=== PATIENT | male | born 1955 | race African-American/Black ===

== ENCOUNTER 2017-04-11 09:45 | Emergency (ER) | payer SELFPAY ==
[~2017-04-11] VITALS: Ht 180.3 cm; Wt 85.0 kg
[~2017-04-11 09:45] MED LIST: LISI-363 PO; METF500 PO; PERC5TAB12 PO
[2017-04-11 09:46] VITALS: BP 187/97; PULSE 76; RESP 20; TEMP 98.4; O2SAT 99
[2017-04-11] MEDS ORDERED: GLIP5TAB8 PO (10:00)
[2017-04-11] MEDS ORDERED: LISI-515 PO ×2 (10:00→15:23)
[2017-04-11] MEDS ORDERED: SODIUM CHLORIDE 0.9% FLUSH 10 ML FLUSH IVF PRN (10:30)
[2017-04-11] MEDS ORDERED: LISINOPRIL 20 MG TAB PO ONE (10:30)
[2017-04-11 10:45] VITALS: RESP 16; O2SAT 98
[2017-04-11 10:46] LABS: AUTOMATED NEUTROPHIL # 2.4 TH/MM3 (1.8-7.7); BASOPHIL % 0.5 % (0.0-2.0); EOSINOPHIL # 0.1 TH/MM3 (0-0.4); EOSINOPHIL % 1.4 % (0.0-4.0); HEMATOCRIT 40.3 % (39.0-51.0); HEMO FLAGS DIFF FINAL; LYMPH % 34.7 % (9.0-44.0); LYMPHOCYTE # 1.5 TH/MM3 (1.0-4.8); MEAN CELL VOLUME 85.7 FL (80.0-100.0); MEAN CORPUSCULAR HEMOGLOBIN 29.4 PG (27.0-34.0); MEAN CORPUSCULAR HGB CONC 34.3 % (32.0-36.0); MONO % 8.3 % (0.0-8.0); NEUT % 55.1 % (16.0-70.0); PLATELET COUNT 313 TH/MM3 (150-450); RED BLOOD COUNT 4.71 MIL/MM3 (4.50-5.90); RED CELL DISTRIBUTION WIDTH 13.1 % (11.6-17.2); WHITE BLOOD COUNT 4.4 TH/MM3 (4.0-11.0)
[2017-04-11 10:57] LABS: APTT (PATIENT) 28.4 SEC (24.3-30.1); PROTHROMBIN TIME - PATIENT 10.7 SEC (9.8-11.6)
[2017-04-11 10:59] LABS: ALT (GPT) 14 U/L (12-78); ANION GAP 9 MEQ/L (5-15); AST (GOT) 11 U/L (15-37); BICARBONATE 23.7 MEQ/L (21.0-32.0); BLOOD UREA NITROGEN 11 MG/DL (7-18); CHLORIDE 104 MEQ/L (98-107); GLOMERULAR FILTRATION RATE 84 ML/MIN (>89); POTASSIUM 3.9 MEQ/L (3.5-5.1); SODIUM (NA) 137 MEQ/L (136-145)
[2017-04-11 11:03] LABS: ALKALINE PHOSPHATASE 81 U/L (45-117); TOTAL BILIRUBIN ADULT 0.3 MG/DL (0.2-1.0)
--- NOTE | 2017-04-11 11:24 | RADRPT ---
EXAM DATE/TIME: 04/11/2017 10:46 [facility] COMPARISON: No previous studies available for comparison. INDICATIONS : Elevated Blood Pressure MEDICAL HISTORY : None. SURGICAL HISTORY : None. ENCOUNTER: Initial ACUITY: 1 day PAIN SCORE: 0/10 LOCATION: Bilateral chest FINDINGS: A single view of the chest demonstrates the lungs to be symmetrically aerated without evidence of mas s, infiltrate or effusion. The cardiomediastinal contours are unremarkable. Osseous structures are intact. CONCLUSION: No acute disease. Timmy Mcgill MD on April 11, 2017 at 11:22 Board Certified Radiologist. This report was verified electronically.
--- NOTE | 2017-04-11 12:56 | RADRPT ---
EXAM DATE/TIME: 04/11/2017 12:31 [facility] COMPARISON: No previous studies available for comparison. INDICATIONS : Blood pressure issues.Double vision. RADIATION DOSE: 56.35 CTDIvol (mGy) MEDICAL HISTORY : Hypertension. Diabetes SURGICAL HISTORY : None. ENCOUNTER: Initial ACUITY: 4 - 6 days PAIN SCALE: 0/10 LOCATION: cranial TECHNIQUE: Multiple contiguous axial images were obtained of the head. Using automated exposure control and adj ustment of the mA and/or kV according to patient size, radiation dose was kept as low as reasonably a chievable to obtain optimal diagnostic quality images. DICOM format image data is available electro nically for review and comparison. FINDINGS: CEREBRUM: The ventricles are normal for age. No evidence of midline shift, mass lesion, hemorrhage or acute in farction. No extra-axial fluid collections are seen. POSTERIOR FOSSA: The cerebellum and brainstem are intact. The 4th ventricle is midline. The cerebellopontine angle i s unremarkable. EXTRACRANIAL: The visualized portion of the orbits is intact. SKULL: The calvaria is intact. No evidence of skull fracture. CONCLUSION: No acute disease. Timmy Mcgill MD on April 11, 2017 at 12:53 Board Certified Radiologist. This report was verified electronically.
[2017-04-11 13:00] VITALS: BP 178/97; PULSE 68; RESP 18; O2SAT 98
--- NOTE | 2017-04-11 15:23 | PD ---
HPI Chief Complaint: Medication Refill Request Time Seen by Provider: 10:07 Travel History International Travel<30 days: No Contact w/Intl Traveler<30days: No Traveled to known affect area: No History of Present Illness HPI Patient is a 61-year-old male who comes in complaining of not feeling well. He says he is out of his lisinopril. He also reports double vision and tingling sensation in his hands. He denies any chest pain or shortness of breath. Denies any headache. He says he went to see an vehicle window tinter, who said that he had the double vision from his diabetes. He says he has an appointment with his primary care doctor in April 27. [facility] Past Medical History Diabetes: Yes Patient Takes Glucophage: Yes Diminished Hearing: No Hypertension: Yes Past Surgical History Surgical History: No Previous Surgery Social History Alcohol Use: No Tobacco Use: No Substance Use: No Allergies-Medications (Allergen,Severity, Reaction): Coded Allergies: No Known Allergies (Verified , 04/11/17) Reported Meds & Prescriptions Reported Meds & Active Scripts Active Reported Glipizide Unknown Strength Tab Unknown Dose PO DAILY Take 30 minutes before a meal Lisinopril 20 Mg Tab 20 Mg PO DAILY Review of Systems Except as stated in HPI: all other systems reviewed are Neg General / Constitutional: No: Fever, Chills Eyes: Positive: Diploplia, No: Blurred Vision HENT: No: Headaches, Lightheadedness Cardiovascular: No: Chest Pain or Discomfort Respiratory: No: Shortness of Breath Gastrointestinal: No: Nausea, Vomiting Musculoskeletal: No: Myalgias Skin: No Rash, No Change in Pigmentation Neurologic: Positive: Paresthesia Physical Exam Narrative GENERAL: Awake and alert, in no acute distress. SKIN: Focused skin assessment warm/dry. HEAD: Atraumatic. Normocephalic. EYES: Pupils equal and round and reactive. No scleral icterus. Extraocular movements intact. ENT: Mucous membranes pink and moist. NECK: Trachea midline. No JVD. CARDIOVASCULAR: Regular rate and rhythm. No murmur appreciated. RESPIRATORY: No accessory muscle use. Clear to auscultation. Breath sounds equal bilaterally. GASTROINTESTINAL: Abdomen soft, non-tender, nondistended. Hepatic and splenic margins not palpable. MUSCULOSKELETAL: No obvious deformities. No clubbing. No cyanosis. No edema. NEUROLOGICAL: Awake and alert. No obvious cranial nerve deficits. Motor grossly within normal limits. Normal speech. Past pointing on finger-nose- finger test. PSYCHIATRIC: Appropriate mood and affect; insight and judgment normal. Data Data Last Documented VS Vital Signs Date Time Temp Pulse Resp B/P Pulse Ox O2 Delivery O2 Flow Rate FiO2 04/11/17 13:00 68 18 178/97 98 Room Air 04/11/17 09:46 98.4 Orders Complete Blood Count With Diff (04/11/17 10:16) Comprehensive Metabolic Panel (04/11/17 10:16) Troponin I (04/11/17 10:16) Act Partial Throm Time (Ptt) (04/11/17 10:16) Prothrombin Time / Inr (Pt) (04/11/17 10:16) Chest, Single Ap (04/11/17 10:16) Ct Brain W/O Iv Contrast(Rout) (04/11/17 10:16) Ecg Monitoring (04/11/17 10:16) Iv Access Insert/Monitor (04/11/17 10:16) Oximetry (04/11/17 10:16) Sodium Chloride 0.9% Flush (Ns Flush) (04/11/17 10:30) Lisinopril (Prinivil) (04/11/17 10:30) Labs Laboratory Tests Test 04/11/17 10:32 White Blood Count 4.4 TH/MM3 Red Blood Count 4.71 MIL/MM3 Hemoglobin 13.8 GM/DL Hematocrit 40.3 % Mean Corpuscular Volume 85.7 FL Mean Corpuscular Hemoglobin 29.4 PG Mean Corpuscular Hemoglobin 34.3 % Concent Red Cell Distribution Width 13.1 % Platelet Count 313 TH/MM3 Mean Platelet Volume 8.2 FL Neutrophils (%) (Auto) 55.1 % Lymphocytes (%) (Auto) 34.7 % Monocytes (%) (Auto) 8.3 % Eosinophils (%) (Auto) 1.4 % Basophils (%) (Auto) 0.5 % Neutrophils # (Auto) 2.4 TH/MM3 Lymphocytes # (Auto) 1.5 TH/MM3 Monocytes # (Auto) 0.4 TH/MM3 Eosinophils # (Auto) 0.1 TH/MM3 Basophils # (Auto) 0.0 TH/MM3 CBC Comment DIFF FINAL Differential Comment Prothrombin Time 10.7 SEC Prothromb Time International 1.0 RATIO Ratio Activated Partial 28.4 SEC Thromboplast Time Sodium Level 137 MEQ/L Potassium Level 3.9 MEQ/L Chloride Level 104 MEQ/L Carbon Dioxide Level 23.7 MEQ/L Anion Gap 9 MEQ/L Blood Urea Nitrogen 11 MG/DL Creatinine 1.09 MG/DL Estimat Glomerular Filtration 84 ML/MIN Rate Random Glucose 276 MG/DL Calcium Level 9.1 MG/DL Total Bilirubin 0.3 MG/DL Aspartate Amino Transf 11 U/L (AST/SGOT) Alanine Aminotransferase 14 U/L (ALT/SGPT) Alkaline Phosphatase 81 U/L Troponin I LESS THAN 0.02 NG/ML Total Protein 7.2 GM/DL Albumin 3.5 GM/DL [facility] Medical Decision Making Medical Screen Exam Complete: Yes Emergency Medical Condition: Yes Differential Diagnosis Intracranial pathology versus hypertensive urgency versus uncontrolled diabetes Narrative Course Patient is a 61-year-old male who comes in requesting a refill of his lisinopril , complaining of double vision. Exam shows abnormal neurologic finding of past pointing. IV established, labs sent. Labs show a glucose of 247, no other acute abnormalities. CT of the head shows no acute abnormalities. MRI of the brain ordered to check for intracranial pathology, however patient is refusing the MRI at this time. I explained to him that he could have a mass or of had a stroke, but he does not wish to have the testing done at this time. He says he is claustrophobic, he is offered medication to help sedate him for the test, but he refuses. He understands the risks of refusing the test. He is advised follow-up with his doctor. Given a prescription for lisinopril. Advised to control his blood sugar better. Advised to return to the emergency department as needed for any worsening symptoms. Diagnosis Primary Impression: Hypertension Qualified Code: I10 - Essential hypertension Additional Impression: Diplopia Patient Instructions: Diplopia (ED), General Instructions, Hypertension (ED) Additional Instructions: Taking her medications as prescribed. Follow-up with her doctor. Return to the emergency department as needed for any worsening symptoms. Scripts Lisinopril 20 Mg Tab20 Mg PO DAILY #15 TAB Ref 0 Prov:Anjelica Ward MD 04/11/17 Disposition: 01 DISCHARGE HOME Condition: Stable Anjelica Ward MD Apr 11, 2017 15:23
[2017-04-11 15:30] VITALS: BP 175/96
== END 2017-04-11 15:50 | disposition home or self-care (01) ==
LOC: NEPD 09:45
DX: I10 Essential (primary) hypertension (principal); H53.2 Diplopia; E11.9 Type 2 diabetes mellitus without complications; R20.2 Paresthesia of skin; Z79.899 Other long term (current) drug therapy
CPT/HCPCS: 70450; 71010; 80053; 84484; 85025; 85610; 85730; 99285